=== PATIENT | female | born 1945 | race Caucasian/White ===

== ENCOUNTER 2018-08-22 10:46 | Emergency (ER) | payer OTHER ==
[~2018-08-22] VITALS: Ht 149.9 cm; Wt 65.8 kg
[~2018-08-22 10:46] MED LIST: TRAMADOL HCL50 MG
[2018-08-22] MEDS ORDERED: ESOMEPRAZOLE MA40 MG (11:34)
[2018-08-22] MEDS ORDERED: SUCRALFATE1 GM (11:35)
[2018-08-22] MEDS ORDERED: NORVASC2.5 M1 (11:35)
== END 2018-08-22 15:18 | disposition home or self-care (01) ==
LOC: ER 10:46
DX: M76.892 Other specified enthesopathies of left lower limb, excluding foot (principal)

== ENCOUNTER 2020-07-05 13:18 | Emergency (ER) | payer OTHER ==
[~2020-07-05] VITALS: Ht 160 cm; Wt 64.9 kg
[~2020-07-05 13:18] MED LIST changes: +ESOMEPRAZOLE MA40 MG; +NORVASC2.5 M1; +SUCRALFATE1 GM
[2020-07-05] MEDS ORDERED: CHILDREN'S ASPI81 MG PO (13:33)
[2020-07-05] MEDS ORDERED: BENADRYL25 MG PO (13:57)
[2020-07-05] MEDS ORDERED: ACYCLOVIR800 MG PO (13:57)
[2020-07-05] MEDS ORDERED: KETO10TA2 PO (13:57)
== END 2020-07-05 14:37 | disposition home or self-care (01) ==
LOC: ER 13:18
DX: B02.9 Zoster without complications (principal)